=== PATIENT | female | born 1955 | race Asian ===

== ENCOUNTER 2022-07-17 19:24 | Emergency (ER) | payer OTHER ==
[~2022-07-17] VITALS: Ht 152.4 cm; Wt 70.3 kg
[2022-07-17 19:30] VITALS: BP 168/94
--- NOTE | 2022-07-17 21:30 | NUR ---
sling applied to r arm. + cms
[2022-07-17 21:42] VITALS: BP 168/94
--- NOTE | 2022-07-17 21:42 | NUR ---
Patient discharged with v/s stable. Written and verbal after care instructions given and explained. Patient verbalized understanding. Ambulatory with steady gait. All questions addressed prior to discharge. Advised to follow up with PMD.
== END 2022-07-17 21:42 | disposition home or self-care (01) ==
LOC: MED 19:24
DX: S42.001A Fracture of unspecified part of right clavicle, initial encounter for closed fracture (principal); I10 Essential (primary) hypertension; Z79.899 Other long term (current) drug therapy; W18.30XA Fall on same level, unspecified, initial encounter; Y93.89 Activity, other specified; Y92.89 Other specified places as the place of occurrence of the external cause; Y99.8 Other external cause status
CPT/HCPCS: 73030; 99283